=== PATIENT | male | born 1960 | race Caucasian/White ===

== ENCOUNTER 2024-12-24 12:45 | Inpatient (IN) | payer OTHER ==
[~2024-12-24] VITALS: Ht 203.2 cm; Wt 90.7 kg
[2024-12-24] MEDS: IV NS 0.9% 1,000 ML BAG IV ONE (13:00)
[2024-12-24 14:14] LABS: BASOPHILS % (AUTO) 0.2 % (0.0-2.0); EOSINOPHILS # (AUTO) 0.1 K/uL (0.0-0.7); EOSINOPHILS % (AUTO) 1.3 % (0.0-6.0); HEMATOCRIT 42 % (39-51); HEMOGLOBIN 14.4 g/dL (13.5-17.5); MEAN CORPUSCULAR HEMOGLOBIN 32 PG (26.0-33.0); MEAN CORPUSCULAR HGB CONC 34 g/dl (31.0-36.0); MEAN CORPUSCULAR VOLUME 92 fL (80-96); MONOCYTES # (AUTO) 0.4 K/uL (0.1-1.30); MONOCYTES % (AUTO) 5.6 % (2.0-12.0); NEUTROPHILS # (AUTO) 5.2 K/uL (1.8-8.9); NEUTROPHILS % (AUTO) 77.9 % (43.0-81.0); PLATELET COUNT (AUTO) 238 K/uL (150-450); RED BLOOD CELL COUNT(AUTO) 4.57 MIL/uL (4.5-6.0); RED CELL DISTRIBUTION WIDTH 12.7 % (11.5-15.0); WHITE BLOOD COUNT (AUTO) 6.6 K/uL (4.3-11.0)
[2024-12-24 14:21] LABS: CALCIUM, SERUM 8.7 mg/dL (8.5-10.1); CARBON DIOXIDE 31 mmol/L (21-32); CHLORIDE 105 mmol/L (98-107); CREATININE 0.9 mg/dL (0.6-1.3); GLUCOSE 118 mg/dL (74-106); POTASSIUM 4.1 mmol/L (3.5-5.1); SODIUM SERUM 144 mmol/L (136-145); UREA NITROGEN, BLOOD 19 mg/dL (7-18)
[2024-12-24 14:26] LABS: MAGNESIUM 2.2 mg/dL (1.8-2.4); PHOSPHORUS 3.3 mg/dL (2.5-4.9)
[2024-12-24 14:30] LABS: LACTIC ACID 1.9 mmol/L (0.4-2.0)
[2024-12-24 14:36] LABS: THYROID STIMULATING HORMONE 5.48 uIU/mL (0.358-3.74)
[2024-12-24] MEDS ORDERED: ASPIRIN 81 MG TAB.CHEW ONE (15:33)
[2024-12-24] MEDS: ASPIRIN 81 MG TAB.CHEW PO ONE (15:46)
[2024-12-24] MEDS ORDERED: TRIA1TAB5 PO (19:01)
[2024-12-24] MEDS ORDERED: TAMS-12 PO (19:01)
[2024-12-24] MEDS ORDERED: ONDANSETRON HCL/PF 4 MG/2 ML VIAL IVP PRN (19:30)
[2024-12-24] MEDS: IV 1/2NS 1000 ML 1,000 ML IV ONE (19:30)
[2024-12-24] MEDS ORDERED: MAGNESIUM HYDROXIDE 30 ML UDC PO PRN (19:30)
[2024-12-24] MEDS: ENOXAPARIN SODIUM 40 MG/0.4 ML DISP.SYRIN SQ SCH (20:43)
[2024-12-25 01:50] VITALS: BP 146/64; TEMP 98.1; O2SAT 99
[2024-12-25 04:00] VITALS: BP 151/60; TEMP 97.5; O2SAT 99
[2024-12-25 07:35] LABS: BASOPHILS % (AUTO) 0.4 % (0.0-2.0); EOSINOPHILS # (AUTO) 0.3 K/uL (0.0-0.7); HEMATOCRIT 41 % (39-51); HEMOGLOBIN 13.9 g/dL (13.5-17.5); LYMPHOCYTES # (AUTO) 1.8 K/uL (0.8-4.8); LYMPHOCYTES % (AUTO) 27.6 % (20.0-44.0); MEAN CORPUSCULAR HEMOGLOBIN 31 PG (26.0-33.0); MEAN CORPUSCULAR HGB CONC 34 g/dl (31.0-36.0); MEAN CORPUSCULAR VOLUME 92 fL (80-96); MONOCYTES # (AUTO) 0.4 K/uL (0.1-1.30); MONOCYTES % (AUTO) 6.2 % (2.0-12.0); NEUTROPHILS % (AUTO) 61.8 % (43.0-81.0); PLATELET COUNT (AUTO) 233 K/uL (150-450); RED BLOOD CELL COUNT(AUTO) 4.42 MIL/uL (4.5-6.0); RED CELL DISTRIBUTION WIDTH 13.1 % (11.5-15.0); WHITE BLOOD COUNT (AUTO) 6.5 K/uL (4.3-11.0)
[2024-12-25 07:40] LABS: CALCIUM, SERUM 8.1 mg/dL (8.5-10.1); CREATININE 0.8 mg/dL (0.6-1.3); MAGNESIUM 2.5 mg/dL (1.8-2.4)
[2024-12-25] MEDS: PANTOPRAZOLE 40 MG TABLET.DR PO SCH (07:55)
[2024-12-25 08:00] VITALS: BP 140/69; TEMP 97.5; O2SAT 97
[2024-12-25] MEDS: ASPIRIN EC 81 MG TABLET.DR PO SCH (08:05)
[2024-12-25] MEDS: TAMSULOSIN 0.4 MG CAP.SR.24H PO SCH (08:05)
[2024-12-25 12:00] VITALS: BP 146/65; TEMP 97.3; O2SAT 98
[2024-12-25] MEDS: ACETAMINOPHEN 325 MG TABLET PO PRN (14:56)
[2024-12-25 16:00] VITALS: BP 154/62; TEMP 97.5; O2SAT 97
[2024-12-25] MEDS ORDERED: IOHEXOL-350 100 ML VIAL IV ONE (19:45)
[2024-12-25] MEDS ORDERED: IV NS 0.9% 250 ML IV ONE (19:45)
[2024-12-25] MEDS ORDERED: CT SWABBABLE VALVE TRANS SET 1 EA INFUS.SET MC ONE (19:45)
[2024-12-25 20:00] VITALS: BP 149/68; TEMP 97.7; O2SAT 99
[2024-12-26] VITALS: BP 148/67; TEMP 96.8; O2SAT 99
[2024-12-26 04:00] VITALS: BP 173/66; TEMP 98.1; O2SAT 99
[2024-12-26] MEDS: hydrALAZINE HCL IV 20 MG VIAL IV PRN (06:28)
[2024-12-26 10:59] VITALS: BP 168/69
[2024-12-26] MEDS: LISINOPRIL (20MG) 20 MG TABLET PO SCH (10:59)
[2024-12-26] MEDS ORDERED: ATOR40TA PO ×2 (11:04→12:17)
== END 2024-12-26 12:55 | disposition home or self-care (01) | DRG 73 ==
LOC: ER 12:50 → TELE1 17:51
PROVIDERS: ADMIT Nurse Practitioner Family; ATTEND Nurse Practitioner Family
DX: G90.89 Other disorders of autonomic nervous system (principal); I21.A1 Myocardial infarction type 2; E86.0 Dehydration; E78.5 Hyperlipidemia, unspecified; I10 Essential (primary) hypertension; N40.0 Benign prostatic hyperplasia without lower urinary tract symptoms; I71.21 Aneurysm of the ascending aorta, without rupture; T50.2X5A Adverse effect of carbonic-anhydrase inhibitors, benzothiadiazides and other diuretics, initial encounter; Y92.9 Unspecified place or not applicable; R79.89 Other specified abnormal findings of blood chemistry; R42 Dizziness and giddiness; I35.1 Nonrheumatic aortic (valve) insufficiency
CPT/HCPCS: 36415; 70450-TC; 71045-TC; 80048-TC; 80061-TC; 83605-TC; 83735-TC; 84100-TC; 84443-TC; 84484-TC; 85025-TC; 87040-TC; 93307-TC; G0378; J0360; J1650; J3490; J7050; Q9967